=== PATIENT | male | born 1995 | race Caucasian/White ===

== ENCOUNTER 2023-06-30 22:44 | Emergency (ER) | payer OTHER ==
[~2023-06-30] VITALS: Ht 185.5 cm; Wt 104.0 kg
[2023-06-30] MEDS ORDERED: NS IV 1000 ML 1,000 ML IV STA (23:07)
--- NOTE | 2023-06-30 23:07 | ED General ---
General Chief Complaint: Dizziness/Syncope Stated Complaint: DIZZINESS, BROKE OUT IN HIVES EARLIER TODAY, Source of Information: Patient Exam Limitations: No Limitations History of Present Illness Date Seen by Provider: Jun 30, 2023 Time Seen by Provider: 22:47 Initial Comments 27-year-old male with no pertinent past medical history coming in due to feeling lightheaded. Started last night, when he stands up it feels worse. Denies any chest pain, shortness of breath, abdominal pain, nausea, vomiting, diarrhea, fever, chills, weakness, numbness, or any other concerns. He does note he had hives all over his body, mostly over his back earlier today. He has no allergies that he knows of. They have since went away without any medications. Allergies and Home Medications Allergies Coded Allergies: No Known Drug Allergies (Unverified , 06/30/23) Patient Home Medication List Home Medication List Reviewed: Yes Review of Systems Review of Systems Constitutional: No fever EENTM: no symptoms reported Respiratory: no symptoms reported Cardiovascular: no symptoms reported Gastrointestinal: no symptoms reported Genitourinary: no symptoms reported Musculoskeletal: no symptoms reported Skin: see HPI Psychiatric/Neurological: See HPI Hematologic/Lymphatic: No Symptoms Reported Immunological/Allergic: no symptoms reported Past Yllmnkt-Yzgeqw-Evhggd Hx Patient Social History Substance use?: No Physical Exam Vital Signs Vital Signs - First Documented 06/30/23 23:03 Temp 36.8 Pulse 87 Resp 16 B/P (MAP) 145/81 (102) Capillary Refill : Height, Weight, BMI Height: '" Weight: lbs. oz. kg; BMI Method: General Appearance: No Apparent Distress, WD/WN Eyes: Bilateral Eye Normal Inspection HEENT: PERRL/EOMI, Normal ENT Inspection, Pharynx Normal Neck: Full Range of Motion, Normal Inspection, Non Tender, Supple Respiratory: Chest Non Tender, Lungs Clear, Normal Breath Sounds, No Accessory Muscle Use, No Respiratory Distress Cardiovascular: Regular Rate, Rhythm, No Edema, Normal Peripheral Pulses Gastrointestinal: Normal Bowel Sounds, Non Tender, Soft; No Distended, No Guarding Back: Normal Inspection, No CVA Tenderness Extremity: Normal Capillary Refill, Normal Inspection, Normal Range of Motion, Non Tender, No Calf Tenderness, No Pedal Edema Neurologic/Psychiatric: Alert, Oriented x3, No Motor/Sensory Deficits, Normal Mood/Affect, financial institution treasurer II-XII Norm as Tested, Other (normal gait, normal visual arrieta and visual) Skin: Normal Color, Warm/Dry Progress/Results/Core Measures Suspected Sepsis SIRS Temperature: Pulse: Respiratory Rate: Laboratory Tests 06/30/23 23:13: White Blood Count 8.1 Blood Pressure / Mean: Laboratory Tests 06/30/23 23:13: Creatinine 1.31H, Platelet Count 169, Total Bilirubin 0.4 Results/Orders Lab Results Laboratory Tests Test 06/30/23 23:13 Range/Units White Blood Count 8.1 4.3-11.0 10^3/uL Red Blood Count 4.97 4.30-5.52 10^6/uL Hemoglobin 16.2 13.3-17.7 g/dL Hematocrit 46 40-54 % Mean Corpuscular Volume 93 80-99 fL Mean Corpuscular Hemoglobin 33 25-34 pg Mean Corpuscular Hemoglobin Concent 35 32-36 g/dL Red Cell Distribution Width 12.6 10.0-14.5 % Platelet Count 169 130-400 10^3/uL Mean Platelet Volume 9.8 9.0-12.2 fL Immature Granulocyte % (Auto) 0 % Neutrophils (%) (Auto) 61 42-75 % Lymphocytes (%) (Auto) 27 12-44 % Monocytes (%) (Auto) 7 0-12 % Eosinophils (%) (Auto) 3 0-10 % Basophils (%) (Auto) 1 0-10 % Neutrophils # (Auto) 4.9 1.8-7.8 10^3/uL Lymphocytes # (Auto) 2.2 1.0-4.0 10^3/uL Monocytes # (Auto) 0.6 0.0-1.0 10^3/uL Eosinophils # (Auto) 0.3 0.0-0.3 10^3/uL Basophils # (Auto) 0.1 0.0-0.1 10^3/uL Immature Granulocyte # (Auto) 0.0 0.0-0.1 10^3/uL Sodium Level 141 135-145 MMOL/L Potassium Level 3.6 3.6-5.0 MMOL/L Chloride Level 109 H 98-107 MMOL/L Carbon Dioxide Level 21 21-32 MMOL/L Anion Gap 11 5-14 MMOL/L Blood Urea Nitrogen 11 7-18 MG/DL Creatinine 1.31 H 0.60-1.30 MG/DL Estimat Glomerular Filtration Rate 77 BUN/Creatinine Ratio 8 Glucose Level 86 70-105 MG/DL Calcium Level 8.7 8.5-10.1 MG/DL Corrected Calcium 8.5 8.5-10.1 MG/DL Total Bilirubin 0.4 0.1-1.0 MG/DL Aspartate Amino Transf (AST/SGOT) 43 H 5-34 U/L Alanine Aminotransferase (ALT/SGPT) 39 0-55 U/L Alkaline Phosphatase 76 40-136 U/L Total Protein 7.0 6.4-8.2 GM/DL Albumin 4.3 3.2-4.5 GM/DL My Orders Orders - MARTHA GONSALVES MD Cbc With Automated Diff (06/30/23 23:05) Comprehensive Metabolic Panel (06/30/23 23:05) Ed Iv/Invasive Line Start (06/30/23 23:05) Ns Iv 1000 Ml (Ns Iv 1000 Ml) (06/30/23 23:07) Famotidine Injection (Famotidine Injec (06/30/23 23:15) Diphenhydramine Injection (Diphenhydram (06/30/23 23:15) Dexamethasone Injection (Dexamethasone (06/30/23 23:15) Ekg Tracing (06/30/23 23:26) Medications Given in ED Current Medications Medications Dose Ordered Sig/Rajat Route Start Time Stop Time Status Last Admin Dose Admin Dexamethasone Sodium Phosphate 6 mg ONCE ONCE IV 06/30/23 23:15 06/30/23 23:16 DC 06/30/23 23:21 6 MG Diphenhydramine HCl 12.5 mg ONCE ONCE IVP 06/30/23 23:15 06/30/23 23:16 DC 06/30/23 23:21 12.5 MG Famotidine 20 mg ONCE ONCE IVP 06/30/23 23:15 06/30/23 23:16 DC 06/30/23 23:25 20 MG Vital Signs/I&O 06/30/23 23:03 Temp 36.8 Pulse 87 Resp 16 B/P (MAP) 145/81 (102) Capillary Refill : Progress Note : Progress Note 27-year-old male with above history coming in due to feeling lightheaded. ABCs were intact vitals were stable on presentation. Orthostatics were obtained by the nursing staff, he has borderline orthostatic from laying to standing. He showed me a picture of hives earlier, no hives right now. He had no other signs of be concerning for anaphylaxis. An IV was placed and basic labs were obtained and were significant for normal hemoglobin, normal white blood cell count, essentially normal LFTs, slightly elevated creatinine. Patient is likely mildly dehydrated. He was given a bolus of IV fluids as well as Pepcid, Benadryl, and Decadron for the hives earlier. He had what appeared to be a vagal episode shortly after the IV. EKG obtained at that time and was negative for acute ischemic changes on my interpretation. Additionally, normal QTc and no delta wave seen. On reassessment, well-appearing and I believe stable for discharge with outpatient follow-up. He was sent home with strict return precautions. ECG Initial ECG Impression Date: Jun 30, 2023 Initial ECG Impression Time: 23:39 Initial ECG Rate: 73 Initial ECG Rhythm: Normal Sinus Comment Narrow QRS, normal axis, no significant ST changes or T wave abnormalities Departure Impression Primary Impression: Hives Additional Impression: Orthostatic dizziness Disposition: 01 HOME, SELF-CARE Condition: Stable Departure-Patient Inst. Decision time for Depature: 00:00 Referrals: NO,LOCAL PHYSICIAN (PCP) Primary Care Physician Patient Instructions: Giovanny (DC) Add. Discharge Instructions: You likely had a mild allergic reaction to something that you are around. We recommend taking [id number] Zyrtec or cetirizine if you have the hives come back. If you have the hives plus other symptoms such as severe wheezing then we will need to be evaluated in the ER again. Otherwise, be sure to be drinking plenty of fluids and follow back up with your regular doctor or the [facility] if you have concerns Work/School Note: Family Work Note, Patient Received Medical Care In the Emergency Department On: Jul 01, 2023 Patient Will Be Able to Return to Work/School On: Jul 02, 2023 School/Childcare Release Date Seen in the Emergency Department: Jul 01, 2023 Time Dismissed from Emergency Department: 00:00 Return to School: Jul 02, 2023 Restrictions: No Restrictions MARTHA GONSALVES MD Jun 30, 2023 23:07
[2023-06-30] MEDS ORDERED: FAMOTIDINE INJ 20MG/2ML VIAL IVP ONE (23:15)
[2023-06-30] MEDS ORDERED: dexAMETHasone INJ 10 MG/ML 1 ML VIAL IV ONE (23:15)
[2023-06-30] MEDS ORDERED: diphenhydrAMINE INJ 50 MG/ML VIAL IVP ONE (23:15)
[2023-06-30 23:20] LABS: BASOPHILS # (AUTO) 0.1 10^3/uL (0.0-0.1); BASOPHILS % (AUTO) 1 % (0-10); EOSINOPHILS # (AUTO) 0.3 10^3/uL (0.0-0.3); EOSINOPHILS % (AUTO) 3 % (0-10); HEMATOCRIT 46 % (40-54); HEMOGLOBIN 16.2 g/dL (13.3-17.7); LYMPHOCYTES # (AUTO) 2.2 10^3/uL (1.0-4.0); LYMPHOCYTES % (AUTO) 27 % (12-44); MEAN CORPUSCULAR HEMOGLOBIN 33 pg (25-34); MEAN CORPUSCULAR HGB CONC 35 g/dL (32-36); MEAN CORPUSCULAR VOLUME 93 fL (80-99); MEAN PLATELET VOLUME 9.8 fL (9.0-12.2); MONOCYTES # (AUTO) 0.6 10^3/uL (0.0-1.0); MONOCYTES % (AUTO) 7 % (0-12); NEUTROPHILS # (AUTO) 4.9 10^3/uL (1.8-7.8); NEUTROPHILS % (AUTO) 61 % (42-75); PLATELET COUNT 169 10^3/uL (130-400); WHITE BLOOD COUNT 8.1 10^3/uL (4.3-11.0)
[2023-06-30 23:42] LABS: ALBUMIN 4.3 GM/DL (3.2-4.5); BILIRUBIN,TOTAL 0.4 MG/DL (0.1-1.0); CALCIUM 8.7 MG/DL (8.5-10.1); CREATININE SERUM 1.31 MG/DL (0.60-1.30); POTASSIUM 3.6 MMOL/L (3.6-5.0)
[2023-07-01 00:33] VITALS: BP 126/78
== END 2023-07-01 00:35 | disposition home or self-care (01) ==
LOC: ER 22:50
DX: L50.9 Urticaria, unspecified (principal); R42 Dizziness and giddiness; E86.0 Dehydration; Z28.310 Unvaccinated for COVID-19
CPT/HCPCS: 36415; 80053; 85025; 93005